=== PATIENT | female | born 1960 ===

== ENCOUNTER 2018-11-08 23:59 | Emergency (ER) | payer OTHER ==
[2018-11-09 00:05] VITALS: RESP 18; BMI 22.0
[2018-11-09] MEDS ORDERED: Sodium Chloride 0.9% 1,000 ML IV STA (00:31)
[2018-11-09 01:01] LABS: ALB/GLOB RATIO 1.2 (1.0-2.1); ALBUMIN 4.8 g/dL (3.5-5.0); ALT/SGPT 12 U/L (9-52); AST/SGOT 30 U/L (14-36); BLOOD UREA NITROGEN 19 mg/dl (7-17); CALCIUM 9.6 mg/dL (8.4-10.2); GFR NON-AFRICAN AMERICAN > 60; LIPASE 132 U/L (23-300)
[2018-11-09] MEDS ORDERED: Iohexol 300 100 ML IJ ONE (01:07)
[2018-11-09] MEDS ORDERED: Sodium Chloride 0.9% 0 ML IV ONE (01:07)
--- NOTE | 2018-11-09 01:15 | ED PDOC ---
HPI: General Adult Time Seen by Provider: 11/09/18 00:00 Chief Complaint (Nursing): Abdominal Pain Chief Complaint (Provider): Abdominal Pain History Per: Patient History/Exam Limitations: no limitations Onset/Duration Of Symptoms: Hrs (x 3) Current Symptoms Are (Timing): Still Present Additional Complaint(s): 58 year old female with a history of fibromyalgia, bronchitis and rheumatoid arthritis presents to the ED for evaluation of abdominal pain and tremors that began shortly after dinner, approximately 3 hours prior to arrival. Patient reports a few episodes of vomiting and nausea and fluctuating, subjective body temperature. Denies diarrhea, fever and other complaints. PMD: Dr. Casiano Past Medical History Reviewed: Historical Data, Nursing Documentation, Vital Signs Vital Signs: Last Vital Signs Temp 97.4 F L 11/09/18 00:04 Pulse 89 11/09/18 00:04 Resp 18 11/09/18 00:04 BP 130/66 11/09/18 00:04 Pulse Ox 99 11/09/18 00:04 - Medical History PMH: Anxiety, Arthritis, Back Problems, Bronchitis, COPD, Depression, Fibromyalgia, Hypothyroidism, Rheumatoid Arthritis - Surgical History Surgical History: - Family History Family History: States: Unknown Family Hx - Social History Ex-Smoker (has not smoked in the last 12 months): Yes (Quit 3 years ago) Alcohol: None - Immunization History Hx Tetanus Toxoid Vaccination: No Hx Influenza Vaccination: No Hx Pneumococcal Vaccination: No - Home Medications Home Medications: Ambulatory Orders Medication Instructions Recorded Quetiapine Fumarate [Seroquel] 200 mg PO DAILY 11/12/14 DULoxetine [Cymbalta] 60 mg PO DAILY 06/16/18 Diclofenac Sodium [Voltaren] 75 mg PO BID 06/16/18 Gabapentin [Neurontin] 100 mg PO DAILY 06/16/18 Ondansetron [Zofran] 4 mg PO Q6H PRN #6 tab 11/09/18 - Allergies Allergies/Adverse Reactions: Allergies Allergy/AdvReac Type Severity Reaction Status Date / Time No Known Allergies Allergy Verified 11/09/18 00:16 Review of Systems ROS Statement: Except As Marked, All Systems Reviewed And Found Negative Constitutional: Positive for: Chills. Negative for: Fever Gastrointestinal: Positive for: Vomiting, Abdominal Pain. Negative for: Diarrhea Physical Exam - Reviewed Nursing Documentation Reviewed: Yes Vital Signs Reviewed: Yes - Physical Exam Appears: Positive for: Non-toxic, No Acute Distress Head Exam: Positive for: ATRAUMATIC, NORMAL INSPECTION, NORMOCEPHALIC Skin: Positive for: Normal Color, Warm, Dry. Negative for: Rash Eye Exam: Positive for: EOMI, Normal appearance, PERRL Neck: Positive for: Normal, Painless ROM, Supple Cardiovascular/Chest: Positive for: Regular Rate, Rhythm. Negative for: Murmur Respiratory: Positive for: Normal Breath Sounds. Negative for: Wheezing, Respiratory Distress Gastrointestinal/Abdominal: Positive for: Normal Exam, Bowel Sounds, Soft. Negative for: Tenderness, Mass, Guarding, Rebound Back: Positive for: Normal Inspection. Negative for: L CVA Tenderness, R CVA Tenderness Extremity: Positive for: Normal ROM (x 4). Negative for: Deformity Neurological/Psych: Positive for: Awake, Alert, Normal Tone, Oriented (x 3). Negative for: Motor/Sensory Deficits, Facial Droop - Laboratory Results Result Diagrams: 11/09/18 00:31 11/09/18 00:31 Lab Results: Total Bilirubin 0.7 mg/dl (0.2-1.3) 11/09/18 00:31 AST 30 U/L (14-36) 11/09/18 00:31 ALT 12 U/L (9-52) 11/09/18 00:31 Alkaline Phosphatase 85 U/L (38-126) 11/09/18 00:31 Total Protein 8.8 G/DL (6.3-8.2) H 11/09/18 00:31 Albumin 4.8 g/dL (3.5-5.0) 11/09/18 00:31 Globulin 3.9 gm/dL (2.2-3.9) 11/09/18 00:31 Albumin/Globulin Ratio 1.2 (1.0-2.1) 11/09/18 00:31 Lipase 132 U/L (23-300) 11/09/18 00:31 - ECG O2 Sat by Pulse Oximetry: 99 (RA) Pulse Ox Interpretation: Normal Medical Decision Making Medical Decision Makin:26 Impression: abdominal pain vomiting r/o small bowel obstruction Initial Plan: --EKG --CMP --CBC --Troponin --NS IV 1,000 mls --Zofran 4 mg IV --CT Abd & Pelvis w/ contrast CT Abd & Pelvis w/ contrast FINDINGS: Fluid filled stomach. Fluid filled small and large bowels. The visualized lung bases are unremarkable. Normal unenhanced liver. Normal gallbladder and extrahepatic biliary system. Normal unenhanced spleen. Normal pancreas. Normal bilateral adrenal glands. Normal size of the right kidney. There is no right renal mass. There are no right renal calculi. There is no right hydronephrosis. Normal visualized right ureter. Normal size of the left kidney. There is no left renal mass. There are no left renal calculi. There is no left hydronephrosis. Normal visualized left ureter. Normal visualized stomach. Normal small intestine. Normal colon. The appendix is visualized and appears normal. There is no demonstrated peritoneal fluid. Normal abdominal aorta. Normal inferior vena cava. Normal retroperitoneum. Normal urinary bladder. There is no pelvic mass lesion or lymphadenopathy. There is no pelvic fluid. Normal abdominal wall. Normal osseous structures. IMPRESSION: Ileus versus developing gastroenteritis. 04:34 Patient aware of results. appears much more comfortable. did not vomit yet. will have a PO trial and repeat vitals. pt tolerated po and feels improved, stable for dc. -- Scribe Attestation: Documented by Haritha Mobley, acting as a scribe for Roberto Verde MD Provider Scribe Attestation: All medical record entries made by the Scribe were at my direction and personally dictated by me. I have reviewed the chart and agree that the record accurately reflects my personal performance of the history, physical exam, medical decision making, and the department course for this patient. I have also personally directed, reviewed, and agree with the discharge instructions and disposition. Disposition - Clinical Impression Clinical Impression: Gastroenteritis - Patient ED Disposition Is Patient to be Admitted: No Counseled Patient/Family Regarding: Studies Performed, Diagnosis, Need For Followup - Disposition Disposition: Routine/Home Disposition Time: 04:30 Condition: IMPROVED Additional Instructions: follow up with your primary doctor in 1-2 days return to the ED with any worsening or concerning symptoms Prescriptions: Ondansetron [Zofran] 4 mg PO Q6H PRN #6 tab PRN Reason: Nausea/Vomiting Instructions: Gastroenteritis (ED) Forms: [employer] (Yoruba)
[2018-11-09 01:16] LABS: BASO # 0.1 K/uL (0.0-0.2); BASO % 0.4 % (0.0-2.0); EOS # 0.1 K/uL (0.0-0.7); EOS % 0.7 % (0.0-4.0); HEMOGLOBIN 14.3 g/dL (12.0-16.0); LYMPH # 2.1 K/uL (1.0-4.3); LYMPH % 14.9 % (20.0-40.0); MEAN CELL VOLUME 86.2 fl (81.0-99.0); MEAN CORPUSCULAR HEMOGLOBIN 29.5 pg (27.0-31.0); MEAN CORPUSCULAR HGB CONC 34.2 g/dL (33.0-37.0); MEAN PLATELET VOLUME 8.6 fl (7.2-11.7); MONO % 7.4 % (0.0-10.0); NEUT # 10.7 K/uL (1.8-7.0); NEUT % 76.6 % (50.0-75.0); NRBC % 0.1 % (0.0-0.0); RBC 4.86 Mil/uL (3.80-5.20); RED CELL DISTRIBUTION WIDTH 14.3 % (11.5-14.5)
[2018-11-09 04:45] VITALS: BP 140/88; PULSE 90; TEMP 98.3
[2018-11-09 05:10] VITALS: O2SAT 99
--- NOTE | 2018-11-09 08:22 | CARD ---
APPROVED REPORT Date of service: 11/09/2018 EKG Measurement Heart [id number] MD [id number] <Conclusion> Normal sinus rhythm Normal ECG
--- NOTE | 2018-11-09 09:42 | CT ---
Date of service: 11/09/2018 PROCEDURE: CT Abdomen and Pelvis without intravenous contrast HISTORY: abd pain COMPARISON: None. TECHNIQUE: Helical CT of the abdomen and pelvis was performed without oral or intravenous contrast as per referring physician request. Coronal and sagittal reformats were generated.. Radiation dose: Total exam DLP = 180.43 mGy-cm. This CT exam was performed using one or more of the following dose reduction techniques: Automated exposure control, adjustment of the mA and/or kV according to patient size, and/or use of iterative reconstruction technique. FINDINGS: LOWER THORAX: Trace emphysema right lower lobe periphery. Lung bases otherwise unremarkable bilaterally. LIVER: Unremarkable. No gross lesion or ductal dilatation. GALLBLADDER AND BILE DUCTS: Unremarkable. PANCREAS: Unremarkable. No gross lesion or ductal dilatation. SPLEEN: Unremarkable. ADRENALS: Unremarkable. No mass. KIDNEYS AND URETERS: No radiodense urolithiasis, perinephric fluid collection or obstructive uropathy is appreciate bilaterally. The bilateral ureters appear normal caliber overall. No suspicious renal contour changes to suggest underlying mass. The lack of intravenous contrast limits evaluation of the renal parenchyma bilaterally. VASCULATURE: Nonaneurysmal abdominal aortic calcific atherosclerotic changes are identified. BOWEL: Unremarkable. No obstruction. No gross mural thickening. APPENDIX: No CT evidence of appendicitis. PERITONEUM: Unremarkable. No free fluid. No free air. LYMPH NODES: Unremarkable. No enlarged lymph nodes. BLADDER: Unremarkable. REPRODUCTIVE: Unremarkable. BONES: No acute fracture. OTHER FINDINGS: None. IMPRESSION: No radiodense urolithiasis, obstructive uropathy or perinephric reaction attributable to the bilateral kidneys. Urinary bladder appears unremarkable. Evaluation otherwise compromised by the lack of oral and intravenous contrast administration. No overt pathology appreciable exclusive of the genitourinary tract as per above. Clinical concern remains, then follow-up contrast CT is recommended with both oral and IV agents administered for added diagnostic power. Discordant preliminary report from [facility] 11/09/2018, 1:58 a.m. in terms of ileitis/gastroenteritis pattern.
== END 2018-11-09 05:45 | disposition home or self-care (01) ==
LOC: H.ER 23:59
DX: K52.9 Noninfective gastroenteritis and colitis, unspecified (principal); E03.9 Hypothyroidism, unspecified; M79.7 Fibromyalgia
CPT/HCPCS: 74176; 80053; 83690; 84484; 85025; 93005; 96360; 99284; J2405; J7030